=== PATIENT | male | born 1940 | race Native Hawaiian/Other Pacific Islander ===

== ENCOUNTER 2016-06-03 11:01 | Outpatient (CLI) | payer OTHER ==
[~2016-06-03 11:01] MED LIST: ACET-689 PO; AMIT25TA22 PO; ASA LOW DOSE81 MG PO; ASPIRIN LOW STR81 MG PO; CATAPRES0.3 MG PO; CELEXA40 MG PO; CENTRUM SILVER ULTR1 PO; CLON0.1T16 PO; CLON1TAB18 PO; CLONIDINE0.2 MG PO; CLONIDINE0.3 MG PO; DICL1GEL2 TOP; DIOVAN HCT160 MG/25 PO; DUTA0.5C PO; FISH OIL1000 M1 PO; FLAX SEED1000 MG PO; GABA300C2 PO; HYDACET7.5 PO; LIPITOR10 MG PO; LISI20TA24 PO; LORAZEPAM0.5 MG OR; LORTAB1 TA1 PO; METO25TA4 OR; METO25TA4 PO; NEXIUM40 M1 PO; NIFE30TA PO; OMEPRAZOLE20 M1 OR; PRILOSEC20 MG PO; PX OMEPRAZOLE20 MG OR; SIMV40TA57 PO; TAMS0.4C PO; TRIA0.1C5 EX; ZANTAC 75 PO; ZANTAC300 MG PO
== END 2016-06-03 19:38 | disposition home or self-care (01) ==
LOC: RAD 11:01
DX: J40 Bronchitis, not specified as acute or chronic (principal)

== ENCOUNTER 2016-06-15 10:40 | Outpatient (CLI) | payer OTHER | END 2016-06-15 11:40 | disposition home or self-care (01) | LOC: CT 10:40 | DX: R93.8 Abnormal findings on diagnostic imaging of other specified body structures (principal) | CPT/HCPCS: 36415; 82565; 84520; Q9963 ==

== ENCOUNTER 2016-06-24 19:17 | Emergency (ER) | payer OTHER ==
[~2016-06-24] VITALS: Ht 182.9 cm; Wt 96.2 kg
[2016-06-24 19:41] VITALS: TEMP 98.7
[2016-06-24 20:33] LABS: PLATELET COUNT 279 K/uL (142-355)
[2016-06-24 21:41] VITALS: BP 132/89
== END 2016-06-24 21:38 | disposition home or self-care (01) ==
LOC: ED 19:17
DX: J06.9 Acute upper respiratory infection, unspecified (principal)
CPT/HCPCS: 36415; 85027; 87081; 87804; 87880; 99283

== ENCOUNTER 2016-07-27 19:38 | Emergency (ER) | payer OTHER ==
[~2016-07-27] VITALS: Ht 182.9 cm; Wt 94.8 kg
[2016-07-27 19:47] VITALS: TEMP 98.2
[2016-07-27 21:44] LABS: PLATELET COUNT 300 K/uL (142-355)
[2016-07-27 21:51] LABS: SODIUM 136 mmol/L (136-145)
[2016-07-27 22:25] VITALS: BP 136/72
== END 2016-07-27 22:25 | disposition home or self-care (01) ==
LOC: ED 19:38
PROVIDERS: Specialist
DX: I10 Essential (primary) hypertension (principal)
CPT/HCPCS: 36415; 80048; 85027; 99283

== ENCOUNTER 2016-09-24 08:37 | Outpatient (CLI) | payer OTHER ==
[2016-09-24 09:23] LABS: PLATELET COUNT 261 K/uL (142-355)
[2016-09-24 09:47] LABS: POTASSIUM 3.6 mmol/L (3.6-5.2)
== END 2016-09-24 10:00 | disposition home or self-care (01) ==
LOC: LABW 08:37
PROVIDERS: Internal Medicine
DX: I10 Essential (primary) hypertension (principal); R31.9 Hematuria, unspecified
CPT/HCPCS: 36415; 80053; 80061; 81000; 84443; 85027

== ENCOUNTER 2016-10-30 06:41 | Outpatient (CLI) | payer OTHER ==
[2016-10-30 07:17] LABS: POTASSIUM 3.7 mmol/L (3.6-5.2)
== END 2016-10-30 07:45 | disposition home or self-care (01) ==
LOC: LABW 06:41
PROVIDERS: Internal Medicine Cardiovascular Disease
DX: I50.9 Heart failure, unspecified (principal); Z79.899 Other long term (current) drug therapy; Z51.81 Encounter for therapeutic drug level monitoring
CPT/HCPCS: 36415; 80048; 83880; 84443; 85651

== ENCOUNTER 2016-11-10 08:57 | Outpatient (CLI) | payer OTHER | END 2016-11-10 10:00 | disposition home or self-care (01) | LOC: RESP 08:57 | DX: R06.09 Other forms of dyspnea (principal) | CPT/HCPCS: 93306 ==

== ENCOUNTER 2017-01-30 13:46 | Emergency (ER) | payer OTHER ==
[~2017-01-30] VITALS: Ht 182.9 cm; Wt 84.4 kg
[2017-01-30 14:16] LABS: PLATELET COUNT 221 K/uL (142-355)
[2017-01-30 14:28] LABS: POTASSIUM 3.4 mmol/L (3.6-5.2)
[2017-01-30 15:00] VITALS: BP 128/70; TEMP 97.9
[2017-03-25] MEDS ORDERED: LEVO250T2 PO (10:13)
[2017-03-25] MEDS ORDERED: PROAIR HFA IN (10:13)
[2017-03-25] MEDS ORDERED: MEDROL DOSEPAK4 MG OR (10:13)
== END 2017-01-30 15:01 | disposition home or self-care (01) ==
LOC: ED 13:46
DX: J44.1 Chronic obstructive pulmonary disease with (acute) exacerbation (principal)
CPT/HCPCS: 80053; 85027; 87804; 94640; 94664; 94760; 99283

== ENCOUNTER 2017-02-10 18:06 | Emergency (ER) | payer OTHER ==
[~2017-02-10] VITALS: Ht 185.4 cm; Wt 84.4 kg
[2017-02-10 19:45] VITALS: BP 120/72; TEMP 97.9
[2017-03-25] MEDS ORDERED: LEVO250T2 PO (10:13)
[2017-03-25] MEDS ORDERED: MEDROL DOSEPAK4 MG OR (10:13)
[2017-03-25] MEDS ORDERED: PROAIR HFA IN (10:13)
== END 2017-02-10 19:45 | disposition home or self-care (01) ==
LOC: ED 18:06
DX: M54.5 Low back pain (principal); M25.551 Pain in right hip; G89.29 Other chronic pain; M54.31 Sciatica, right side; F41.8 Other specified anxiety disorders
CPT/HCPCS: 96372; 99282; J1100

== ENCOUNTER 2017-03-17 17:18 | Emergency (ER) | payer OTHER ==
[~2017-03-17] VITALS: Ht 182.9 cm; Wt 83.0 kg
[2017-03-17 23:39] VITALS: BP 150/90; TEMP 98.6
[2017-03-25] MEDS ORDERED: LEVO250T2 PO (10:13)
[2017-03-25] MEDS ORDERED: PROAIR HFA IN (10:13)
[2017-03-25] MEDS ORDERED: MEDROL DOSEPAK4 MG OR (10:13)
== END 2017-03-17 23:39 | disposition home or self-care (01) ==
LOC: ED 17:18
DX: K59.03 Drug induced constipation (principal); T40.2X5A Adverse effect of other opioids, initial encounter; Y92.098 Other place in other non-institutional residence as the place of occurrence of the external cause
CPT/HCPCS: 36415; 82565; 84520; 99283; Q9963

== ENCOUNTER 2017-03-23 10:27 | Outpatient (CLI) | payer OTHER ==
[2017-03-23] MEDS ORDERED: ALPR0.5T24 PO (10:53)
[2017-03-23] MEDS ORDERED: CETIRIZINE10 MG PO (10:53)
[2017-03-23] MEDS ORDERED: FERRO-BOB325 MG OR (10:53)
[2017-03-23] MEDS ORDERED: CVS OMEPRAZOLE20 MG OR (10:54)
[2017-03-25] MEDS ORDERED: PROAIR HFA IN (10:13)
[2017-03-25] MEDS ORDERED: LEVO250T2 PO (10:13)
[2017-03-25] MEDS ORDERED: MEDROL DOSEPAK4 MG OR (10:13)
== END 2017-03-23 10:40 | disposition short-term general hospital (02) ==
LOC: AMB 10:27
DX: R53.1 Weakness (principal); R53.81 Other malaise; R05 Cough
CPT/HCPCS: A0425; A0427

== ENCOUNTER 2017-04-02 12:48 | Outpatient (CLI) | payer OTHER ==
[~2017-04-02 12:48] MED LIST changes: +ALPR0.5T24 PO; +CETIRIZINE10 MG PO; +CVS OMEPRAZOLE20 MG OR; +FERRO-BOB325 MG OR; +LEVO250T2 PO; +MEDROL DOSEPAK4 MG OR; +PROAIR HFA IN
[2017-04-02 13:33] LABS: PLATELET COUNT 276 K/uL (142-355)
[2017-04-02 13:47] LABS: POTASSIUM 3.5 mmol/L (3.6-5.2)
== END 2017-04-02 19:32 | disposition home or self-care (01) ==
LOC: LAB 12:48
PROVIDERS: Internal Medicine
DX: J44.9 Chronic obstructive pulmonary disease, unspecified (principal); I10 Essential (primary) hypertension
CPT/HCPCS: 80053; 85027

== ENCOUNTER 2017-11-25 08:33 | Outpatient (CLI) | payer OTHER ==
[2017-11-25 09:02] LABS: PLATELET COUNT 286 K/uL (142-355)
[2017-11-25 09:55] LABS: POTASSIUM 4.3 mmol/L (3.6-5.2)
== END 2017-11-25 19:41 | disposition home or self-care (01) ==
LOC: LABW 08:33
PROVIDERS: Physician Assistant
DX: E78.5 Hyperlipidemia, unspecified (principal); K21.9 Gastro-esophageal reflux disease without esophagitis; I10 Essential (primary) hypertension; N40.1 Benign prostatic hyperplasia with lower urinary tract symptoms; E55.9 Vitamin D deficiency, unspecified; Z79.899 Other long term (current) drug therapy
CPT/HCPCS: 36415; 80053; 80061; 81000; 82306; 83036; 83735; 84153; 84439; 84443; 85027

== ENCOUNTER → 2018-02-05 12:58 | Outpatient (CLI) | payer OTHER | END | disposition home or self-care (01) | LOC: AMB 12:58 | DX: I46.9 Cardiac arrest, cause unspecified (principal) ==